=== PATIENT | male | born 1995 | race Two or more races ===

== ENCOUNTER 2024-10-18 13:00 | Emergency (ER) | payer MEDICAID, SELFPAY ==
[2024-10-18 13:34] VITALS: BP 158/93; PULSE 77; RESP 18; TEMP 37.2; O2SAT 97
[2024-10-18 13:54] VITALS: BMI 29.2
--- NOTE | 2024-10-18 14:05 | EDNOTE_ITS ---
Upper Respiratory Inf. RME/HPI General Chief Complaint: Flu Like Symptoms Stated Complaint: CONGESTION WITH SORE THROAT Time Seen by Provider: 10/18/24 13:39 Arrival date/time: 10/18/24 13:00 28-year-old male reports with complaints of cough congestion body aches for 1 week. Patient denies nausea vomiting fever chills shortness of breath or chest pain. Patient states he been taking [id number] medications with no improvement of symptoms Limitations: no limitations Related Data Previous Rx's ?Medication ?Instructions ?Recorded ibuprofen 800 mg tablet 800 mg PO TID PRN pain #30 tabs 07/28/21 sulfamethoxazole 800 1 tab PO BID #20 tabs 07/28/21 mg-trimethoprim 160 mg tablet (Bactrim DS) diphenhydramine HCl 25 mg capsule 50 mg (2 x 25 mg) PO Q6H allergic 07/29/21 reaction #30 caps doxycycline hyclate 100 mg capsule 100 mg PO BID #20 caps 07/29/21 ibuprofen 800 mg tablet 800 mg PO TID PRN pain #30 tabs 12/20/21 promethazine-DM 6.25 mg-15 mg/5 mL 5 ml PO Q6H PRN cough #118 mL 10/18/24 oral syrup Allergies Allergy/AdvReac Type Severity Reaction Status Date / Time No Known Allergies Allergy Verified 10/18/24 13:04 Review of Systems Constitutional Constitutional: Denies chills, Denies fever(s) and Denies headache(s) ENT Ears, Nose, Mouth, and Throat: Denies headache(s), Reports nasal congestion, Reports nasal discharge and Denies vertigo Cardiovascular Cardiovascular: Denies chest pain and Denies dyspnea Respiratory Respiratory: Reports cough and Denies dyspnea Gastrointestinal Gastrointestinal: Denies nausea and Denies vomiting Integumentary/Breasts Skin/Breast: Denies erythema and Denies rash Neurologic Neurologic: Denies headache(s) and Denies vertigo Hematologic/Lymphatic Hematologic/Lymphatic: Denies easy bleeding and Denies easy bruising Past Medical History Past Medical History CARDIAC: Negative Congestive Heart Failure RESPIRATORY: Negative Chronic Obstructive Pulmonary Disease (COPD) GENITOURINARY: Negative Renal Disease ENDOCRINE: Negative Diabetes Mellitus Type 1 or Diabetes Mellitus Type 2 Social History SMOKING STATUS: Never smoker ED Exam General Limitations: Present no limitations General appearance: Present alert and in no apparent distress Head Head exam: Present atraumatic Eye Eye exam: Present normal appearance, PERRL and EOMI ENT ENT exam: Present normal exam, normal oropharynx and mucous membranes moist Neck Neck exam: Present normal inspection, full ROM and trachea midline Chest Chest inspection: Present normal inspection and symmetric chest wall rise Respiratory Respiratory exam: Present normal lung sounds bilaterally Cardiovascular Cardiovascular exam: Present regular rate, normal rhythm and normal heart sounds Abdominal Exam Abdominal exam: Present soft and normal bowel sounds Extremities Exam Extremities exam: Present normal inspection and full ROM Back Exam Back exam: Present normal inspection and full ROM Neurological Exam Neurological exam: Present alert, oriented X3 and CN II-XII intact Psychiatric Psychiatric exam: Present normal affect and normal mood Skin Skin exam: Present warm, dry, intact and normal color Course Quality Measures none Vital Signs Vital signs: Vital Signs Temperature 98.9 F 10/18/24 13:34 Pulse Rate 77 10/18/24 13:34 Respiratory Rate 18 10/18/24 13:34 Blood Pressure 158/93 H 10/18/24 13:34 Pulse Oximetry (%) 97 10/18/24 13:34 Oxygen Delivery Method Room Air 10/18/24 13:34 Upper Respiratory Infection Patient data External records reviewed:: None Clinical information provided by:: patient Social determinants that could affect healthcare access:: none Patient has the following chronic illnesses:: none How is presenting disease/condition affected by chronic disease/condition?: no chronic disease Evaluation data The following diagnostics were reviewed and interpreted by me:: lab results Lab and/or radiology exams considered but not ordered:: none Interpretation Summary: Positive for influenza A Medications / Prescriptions Medications or Prescriptions considered but not ordered:: None Medication administrations:: None Consultations Consultation(s) initiated? (list below): No Diagnosis Upper Respiratory Differential Diagnosis: upper respiratory infection, viral infection and influenza Most likely diagnosis given after review of the tests above:: Influenza A Admission Indicated Admission indicated?: not indicated Admission Request Was there a request for admission?: No Disposition Plan Disposition Plan: Discharge Discharge Attestation Discharge Attestation: The patient and all family members were given an opportunity to ask questions and understood the discharge instructions. Discharge instructions specifically effects, indications for sooner follow up or return to the emergency department, and the expected course of current diagnosis. Patient condition: Stable Discharge Plan Plan Patient Disposition: HOME (Self Care) Prescriptions/Referrals Prescriptions/Med Rec: New promethazine-DM 6.-15 mg/5 mL syrup 5 ml PO Q6H PRN (Reason: cough) Qty: 118 0RF No Action sulfamethoxazole-trimethoprim [Bactrim DS] 800-160 mg tablet 1 tab PO BID Qty: 20 0RF ibuprofen 800 mg tablet 800 mg PO TID PRN (Reason: pain) Qty: 30 0RF doxycycline hyclate 100 mg capsule 100 mg PO BID Qty: 20 0RF diphenhydramine HCl 25 mg capsule 50 mg PO Q6H Qty: 30 0RF Rx Instructions: Use diphenhydramine for 3 days as directed and stop. If rash recurs restart and reconsult your doctor ibuprofen 800 mg tablet 800 mg PO TID PRN (Reason: pain) Qty: 30 0RF Problem List Clinical Impression: Influenza Patient/Caregiver Discharge Instructions Discharge Activity: activity as tolerated Education Materials: ED Influenza (Adult) Additional Instructions: Your lab test were positive for the flu take medications as directed, hydrate well, get plenty of rest and follow up with PCP if you are not better in 5 days. The cough associated with the flu virus can sometimes last for several weeks after all other symptoms have gone, take cough medication as needed Print Language: Serbian Stand Alone Forms: [facility] Award Info., Patient Portal Info Letter
[2024-10-18 14:42] VITALS: BP 140/101; PULSE 79; RESP 18; TEMP 37.1; O2SAT 97
== END 2024-10-18 14:43 | disposition home or self-care (01) ==
LOC: SERX 15:22
PROVIDERS: Emergency Provider Emergency Medicine; PCP Nurse Practitioner Family
DX: J10.1 Influenza due to other identified influenza virus with other respiratory manifestations (principal)
CPT/HCPCS: 87400; 87811; 99281